=== PATIENT | female | born 1995 | race Caucasian/White ===

== ENCOUNTER 2017-03-19 12:28 | Emergency (ER) | payer SELFPAY ==
[2017-03-19] MEDS ORDERED: LORATADINE 10 MG TABLET PO ONE (12:49)
[2017-03-19] MEDS ORDERED: METHYLPREDNISOLONE INJ 125 MG/2 ML SDV IM ONE (12:49)
--- NOTE | 2017-03-19 12:51 | ER Document Report ---
ED Skin Rash/Insect Bite/Abscs - General Chief Complaint: Rash Stated Complaint: RASH/PAIN, SWELLING Time Seen by Provider: 03/19/17 12:39 TRAVEL OUTSIDE OF THE [place] IN LAST 30 DAYS: No - HPI Patient complains to provider of: Skin rash/lesion Onset: Other - since thursday Onset/Duration: Gradual Quality of pain: Other - itching Severity: None Pain Level: Denies Skin Character: Vesicular - clumps 2/2 poison jovany Identify cause: Yes Other exposure: Poison jovany Similar symptoms previously: Yes - she has only been doing calamine lotion, no anithistamines - Related Data Allergies/Adverse Reactions: Penicillins Allergy (Verified 03/19/17 12:33) Past Medical History - Social History Smoking Status: Current Every Day Smoker Chew tobacco use (# tins/day): No Frequency of alcohol use: None Drug Abuse: None Family History: Reviewed & Not Pertinent Patient has suicidal ideation: No Patient has homicidal ideation: No Renal/ Medical History: Denies: Hx Peritoneal Dialysis Surgical Hx: Negative - Immunizations Hx Diphtheria, Pertussis, Tetanus Vaccination: Yes Review of Systems - Review of Systems Constitutional: No symptoms reported Skin: See HPI -: Yes All other systems reviewed and negative Physical Exam - Vital signs Vitals: Temp Pulse Resp BP Pulse Ox 98.8 F 99 16 113/68 99 03/19/17 12:34 03/19/17 12:34 03/19/17 12:34 03/19/17 12:34 03/19/17 12:34 - General General appearance: Appears well, Alert In distress: None - HEENT Eyes: Other - swelling surrounding lesions of the right eye Conjunctiva: Normal Extraocular movements intact: Yes Eyelashes: Normal Pupils: PERRL Corrective lenses worn: No - Extremities General upper extremity: Nontender, Normal color, Normal ROM, Normal strength, Normal temperature General lower extremity: Normal color, Normal ROM, Normal strength, Normal temperature, Normal weight bearing - Skin Skin Temperature: Warm Skin Moisture: Dry Skin Color: Normal Skin Turgor: Elastic Skin irregularity: Rash Location of irregularity: Other - isolated areas along left flexor forearm, periobital right eye, medial thighs and back of her left thigh, on her lower abdomen. No evidence of purulence, vesicules on a pale base, minimal crusting Irregularity with: Weeping. negative: Tenderness, Warmth, Induration, Inflammation Course - Re-evaluation Re-evalutation: 03/19/17 17:15 Patient is a 21-year-old female presents with localized reaction to poison jovany. Rash without any sign of infection. Patient educated on the use of antihistamines and steroids to help decrease the amount of inflammation and discomfort. Patient given strict return precautions. - Vital Signs Vital signs: Temp Pulse Resp BP Pulse Ox 98.6 F 87 16 101/65 98 03/19/17 13:10 03/19/17 13:10 03/19/17 13:10 03/19/17 13:10 03/19/17 13:10 Discharge - Discharge Clinical Impression: Poison jovany Condition: Good Disposition: HOME, SELF-CARE Instructions: Contact Dermatitis ([facility]), Use of Diphenhydramine, Corticosteroid Medication ([facility]) Additional Instructions: Buy [id number] Claritin or Zyrtec (store brand is okay) Prescriptions: Methylprednisolone [Medrol Dosepack (4 mg/Tab) 21 Tab/Dosepak] 4 mg PO ASDIR PRN #21 tab.[email or web address] PRN Reason:
[2017-03-19 13:24] VITALS: BP 101/65
== END 2017-03-19 13:20 | disposition home or self-care (01) ==
LOC: ER 12:28
DX: L23.7 Allergic contact dermatitis due to plants, except food (principal); F17.200 Nicotine dependence, unspecified, uncomplicated; Z88.0 Allergy status to penicillin
CPT/HCPCS: 99282; 96372; J2930